=== PATIENT | male | born 1970 | race Caucasian/White ===

== ENCOUNTER 2016-08-10 11:28 | Emergency (ER) | payer OTHER ==
[~2016-08-10] VITALS: Ht 185.4 cm; Wt 178.7 kg
[2016-08-10 12:04] LABS: CALCIUM 8.9 mg/dL (8.5-10.1); CARBON DIOXIDE 29.8 mmol/L (21-32); CHLORIDE SERUM 102 mmol/L (98-107); CREATININE SERUM 1.2 mg/dL (0.7-1.3); GFR1 > 60 mL/min; GLUCOSE SERUM 138 mg/dL (74-106); POTASSIUM SERUM 3.6 mmol/L (3.5-5.1); SODIUM SERUM 139 mmol/L (136-145)
[2016-08-10 12:06] LABS: BASOPHIL % 0.3 % (0-2); PLATELET COUNT 172 x10^3mcL (130-400); RED CELL DISTRIBUTION WIDTH 14.4 % (11.5-14.5)
[2016-08-10 12:08] LABS: ALBUMIN 3.8 g/dL (3.4-5.0); ALKALINE PHOSPHATASE 105 U/L (46-116); ALT/SGPT 30 U/L (16-63); AST/SGOT 21 U/L (15-37); BILIRUBIN TOTAL 0.64 mg/dL (0.20-1.00); HDL CHOLESTEROL 53 mg/dL (40-60); LIPASE 139 IU/L (73-393)
[2016-08-10 12:11] LABS: CHOLESTEROL 221 mg/dL (<200); CHOLESTEROL/HDL RATIO 4.2; TOTAL PROTEIN, SERUM 8.3 g/dL (6.4-8.2); TRIGLYCERIDES 330 mg/dL (<150)
[2016-08-10 12:19] LABS: FREE T4 1.22 ng/dL (0.76-1.46); FREE THYROXINE INDEX 3.5 ug/dL (1.4-4.5); T4(THYROXINE) 10.9 ug/dL (4.7-13.3)
[2016-08-10 12:25] LABS: T3 TOTAL 0.92 ng/mL
[2016-08-10 12:29] LABS: UA SPECIFIC GRAVITY 1.015 (1.005-1.035); microscopic required? YES; urine erythrocyte NEGATIVE (NEGATIVE)
[2016-08-10 15:16] VITALS: BP 150/91
== END 2016-08-10 15:16 | disposition home or self-care (01) ==
LOC: ED 11:28
PROVIDERS: Specialist
DX: S29.011A Strain of muscle and tendon of front wall of thorax, initial encounter (principal); I10 Essential (primary) hypertension; E66.01 Morbid (severe) obesity due to excess calories; E03.9 Hypothyroidism, unspecified; Z86.19 Personal history of other infectious and parasitic diseases; X58.XXXA Exposure to other specified factors, initial encounter; Y93.89 Activity, other specified; Y92.89 Other specified places as the place of occurrence of the external cause; Y99.8 Other external cause status
CPT/HCPCS: 83880; 84439; J1170; J1885; J2405; J7030

== ENCOUNTER 2019-06-08 12:22 | Emergency (ER) | payer OTHER ==
[~2019-06-08] VITALS: Ht 180.3 cm; Wt 128.4 kg
[2019-06-08 12:47] VITALS: Ht 180.3 cm; Wt 128.4 kg
[2019-06-08 15:26] VITALS: BP 140/82
== END 2019-06-08 15:26 | disposition home or self-care (01) ==
LOC: ED 12:22
DX: L03.115 Cellulitis of right lower limb (principal); I10 Essential (primary) hypertension; Z86.19 Personal history of other infectious and parasitic diseases
CPT/HCPCS: 36415; J1885